=== PATIENT | female | born 1935 | race Hispanic/Latino ===

== ENCOUNTER 2019-08-28 22:23 | Inpatient (IN) | payer MEDICARE ==
[~2019-08-28] VITALS: Ht 162.6 cm; Wt 74.6 kg
[2019-08-28] MEDS ORDERED: MORPHINE SULFATE 4 MG/1ML SYG ONE (23:07)
[2019-08-28] MEDS ORDERED: ONDANSETRON HCL 4 MG/2 ML VIAL ONE (23:07)
[2019-08-28 23:09] LABS: BASOPHILS % (AUTO) 0.7 % (0.0-5.0); EOSINOPHILS % (AUTO) 0.5 % (0.0-8.0); HEMATOCRIT 38.3 % (36-48); LYMPHOCYTES % (AUTO) 7.9 % (21.0-51.0); MEAN CORPUSCULAR HGB CONC 33.4 g/dL (32.0-36.0); MEAN CORPUSCULAR VOLUME 89.7 fL (79-99); MONOCYTES % (AUTO) 4.7 % (3.0-13.0); NEUTROPHILS % (AUTO) 86.2 % (40.0-77.0); NUCLEATED RED BLOOD CELLS 0.1 % (0.0-0.19); PLATELET COUNT (AUTO) 218 K/uL (130-400); RED BLOOD CELL COUNT(AUTO) 4.27 MIL/uL (4.00-5.50); WHITE BLOOD COUNT (AUTO) 10.7 K/uL (4.8-10.8)
[2019-08-28 23:20] LABS: CREATININE 0.9 mg/dL (0.5-1.5); POTASSIUM 3.7 mmol/L (3.5-5.1)
[2019-08-28 23:28] LABS: ALBUMIN 3.8 g/dL (3.5-5.0); BILIRUBIN,TOTAL 0.4 mg/dL (0.2-1.0); TOTAL PROTEIN, SERUM 8.1 g/dL (6.0-8.3)
[2019-08-28] MEDS ORDERED: NICARDIPINE IN NACL, ISO-OSM 200 ML IV ONE (23:36)
[2019-08-29] VITALS (57 sets, daily range): BP systolic 118–160; BP diastolic 56–86
[2019-08-29 00:10] LABS: APPEARANCE,URINE Clear (CLEAR); BILIRUBIN,URINE Negative (NEGATIVE); COLOR,URINE Yellow (YELLOW); GLUCOSE, URINE (UA) Negative (NEGATIVE); KETONES,URINE Trace mg/dL (NEGATIVE); LEUKOCYTE ESTERASE ,URINE Negative (NEGATIVE); NITRATE,URINE Negative (NEGATIVE); OCCULT BLOOD,URINE Negative (NEGATIVE); PH,URINE 5.5 (5.0-8.0); PROTEIN,URINE POS 1+ mg/dL (NEGATIVE)
[2019-08-29 00:22] LABS: BACTERIA,URINE None Seen /HPF (None Seen); RBC,URINE None Seen /HPF (0-1); WBC,URINE None Seen /HPF (0-1)
[2019-08-29 00:23] LABS: SQUAMOUS EPITHELIAL CELL,UR Rare /HPF (0-2)
[2019-08-29] MEDS ORDERED: NICARDIPINE IN NACL, ISO-OSM 200 ML IV ONE ×4 (01:41→16:09)
[2019-08-29] MEDS ORDERED: ONDANSETRON HCL 4 MG/2 ML VIAL IVP PRN (06:45)
[2019-08-29] MEDS ORDERED: ACETAMINOPHEN 325 MG TAB PO PRN (06:45)
--- NOTE | 2019-08-29 07:29 | NUR ---
Admitted from ER at 0615. Initial assessment completed. Family went home from ER. Cardene infusing at 5mg/hr. Right side lower leg flaccid, right upper arm markedly weaker than left. Slight drooping of right side of face. Taken to Radiology for repeat CT of brain per oncoming shift nurse Suzanne Delaney
--- NOTE | 2019-08-29 07:45 | NUR ---
NEUROSURGERY Dr. Quinones in to see pt, films are reviewed including the CT from this am. Plan of care discussed with pt's daughter Ana in person. New order received and will carry out.
[2019-08-29] MEDS: NICARDIPINE 100 MG/100ML IV PRN ×4 (08:31→21:41)
--- NOTE | 2019-08-29 08:55 | NUR ---
MD VISIT Dr. Iglesias in to see pt, updated on plan of care. No new orders received at this time.
[2019-08-29] MEDS ORDERED: PANTOPRAZOLE 40 MG/VIAL IVP SCH (09:00)
[2019-08-29] MEDS ORDERED: GADODIAMIDE 10 MMOL/20 ML VIAL IV ONE (09:11)
--- NOTE | 2019-08-29 09:25 | NUR ---
MRI Pt taken to MRI at this time, back to room at 1005.
--- NOTE | 2019-08-29 11:05 | NUR ---
CONSULT Dr. Ryan made aware of the consult, will see pt on Sunday, he is out of town. Dr. Quinones made aware.
[2019-08-29] MEDS ORDERED: MAGNESIUM 2GM PREMIX 50ML 50 ML IV PRN (12:45)
[2019-08-29] MEDS ORDERED: POTASSIUM CHLORIDE 20MEQ/100ML 100 ML IV PRN (12:45)
[2019-08-29] MEDS ORDERED: LOSARTAN 50 MG TABLET PO SCH (13:00)
[2019-08-29] MEDS: INSULIN HUMULIN R 100 UNIT/ML 3ML SQ SCH ×2 (16:13→21:00)
--- NOTE | 2019-08-29 17:28 | NUR ---
DC PLAN PATIENT STATES SHE IS INDEPENDENT, LIVES WITH SPOUSE AND DAUGHTER, HAS PROVIDER 37HR PER WEEK, HAS WHEELCHAIR, WALKER, CANE AND HOSPITAL BED. PER PATIENT, FEELS SAFE TO RETURN HOME. Addendum: 08/29/19 at 1730 by SOUTH AREVALO Amended: Links added.
--- NOTE | 2019-08-29 18:22 | NUR ---
PLAN OF CARE Pt is to be transferred to [facility] for neurology consult as ordered by Dr. Iglesias. Field Operations Coordinator Rukhsana Caballero, SOUTH made aware. Dr. Nye as the accepting MD.
--- NOTE | 2019-08-29 19:02 | NUR ---
1700 transfer request for neurology consult 1750 [place] [facility] [place] met with pt and daughter inform them of transfer process both verbalized understanding. 1815 spoke to chuyita huang [place] [facility] [place] work [place] it and will call be back Report to incoming HS.
[2019-08-29] MEDS ORDERED: CARVEDILOL 12.5 MG TABLET PO SCH (21:00)
[2019-08-29] MEDS ORDERED: LEVETIRACETAM 500 MG in SODIUM CHLORIDE 0.9% 100 ML IV SCH (21:00)
--- NOTE | 2019-08-29 22:45 | NUR ---
REPORT GIVEN TO JESSE RN AT [facility] , DAUGHTER GIVEN DISCHARGE INSTRUCTIONS AND EDUCATION,QUESTIONS ANSWERED, NOTIFIED OF HOSPITAL , DEPT AND ROOM NUMBER. EMS NOTIFIED -AWAITING ARRIVAL FOR TRANSFER
--- NOTE | 2019-08-29 23:33 | NUR ---
PATIENT TRANSFERRED TO [facility] [place] [facility] VIA EMS WITH DAUGHTER.
== END 2019-08-29 23:33 | disposition short-term general hospital (02) | DRG 86 ==
LOC: EDH 22:23 → EDHIP 08-29 01:20 → 2CH 08-29 05:13
PROVIDERS: ADMIT Internal Medicine Critical Care Medicine; ATTEND Internal Medicine Critical Care Medicine
DX: S06.6X0A Traumatic subarachnoid hemorrhage without loss of consciousness, initial encounter (principal); G81.91 Hemiplegia, unspecified affecting right dominant side; E11.9 Type 2 diabetes mellitus without complications; E78.5 Hyperlipidemia, unspecified; E89.0 Postprocedural hypothyroidism; I10 Essential (primary) hypertension; J44.9 Chronic obstructive pulmonary disease, unspecified; Z96.653 Presence of artificial knee joint, bilateral; W18.39XA Other fall on same level, initial encounter; Z85.528 Personal history of other malignant neoplasm of kidney; Z90.5 Acquired absence of kidney; Y93.89 Activity, other specified; Y92.89 Other specified places as the place of occurrence of the external cause; Y99.8 Other external cause status
CPT/HCPCS: 36415; 70450; 70553; 73502; 73620; 80053; 81001; 82550; 82948; 84484; 85025; 93005; 97039; 99291; A9579; C9113; G0378; J1953; J2270; J2405; J3490